=== PATIENT | female | born 1965 | race Caucasian/White ===

== ENCOUNTER → 2016-11-19 | Outpatient (CLI) | payer BC ==
--- NOTE | 2016-11-25 07:57 | WOMENS IMAGING REPORT ---
EXAM DESCRIPTION: BILAT SCREENING MAMMO W/CAD COMPLETED DATE/TIME: 11/19/2016 11:21 am REASON FOR STUDY: Z12.31, ROUTINE SCREENING MAMMO Z12.31 ENCNTR SCREEN MAMMOGRAM FOR MALIGNANT NEOP LASM OF YVROSE COMPARISON: 03/30/2015 TECHNIQUE: Standard craniocaudal and mediolateral oblique views of each breast recorded using Adhesive.coa l acquisition. LIMITATIONS: None. FINDINGS: Findings present which are benign by mammographic criteria. No suspicious masses, calcifi cations or architectural distortion. Read with the assistance of CAD. .[facility] - R2 Cenova Version 1.3 .[facility] Imaging - R2 Cenova Version 1.3 .[facility] Imaging - R2 Cenova Version 2.4 .[facility] - R2 Cenova Version 2.4 .[facility] - R2 Air Drier Version 9.2 Benign mammographic findings may include one or more of the following: Smooth masses, popcorn/rim/co arse calcifications, asymmetries, post-procedure changes, and lesions with long-standing stability. BREAST DENSITY: b. There are scattered areas of fibroglandular density. BIRAD: 2 BENIGN FINDING(S) RECOMMENDATION: ROUTINE SCREENING COMMENT: PATIENT NOTIFIED BY LETTER. The [employer] recommends an annual screening mammogram for women aged 40 years or over. Each patient will receive a reminder prior to the anniversary date of her mammogram. The [employer] (ACR) has developed recommendations for screening MRI of the breast s in certain patient populations, to be used in conjunction with mammography. Breast MRI surveillanc e may be appropriate for women with more than 20% lifetime risk of developing breast cancer as deter mined by genetic testing, significant family history of the disease, or history of mantle radiation f or Hodgkins Disease. ACR Practice Guidelines 2008. TECHNICAL DOCUMENTATION: FINDING NUMBER: (1) ASSESSMENT: (1) JOB ID: [id number] [employer]- All Rights Reserved
== END ==
LOC: WI 09:48
PROVIDERS: ATTEND Family Medicine
DX: Z12.31 Encounter for screening mammogram for malignant neoplasm of breast (principal)
CPT/HCPCS: 77067; G0202

== ENCOUNTER 2017-01-21 23:05 | Emergency (ER) | payer BC ==
[2017-01-22] MEDS ORDERED: OXYCODONE-ACETAMINOPHEN 5-325 MG TABLET PO ONE (00:21)
[2017-01-22] MEDS ORDERED: ONDANSETRON 4 MG TAB.RAPDIS PO ONE (00:21)
--- NOTE | 2017-01-22 00:24 | ER Document Report ---
ED Medical Screen (RME) - General Stated Complaint: ABDOMINAL PAIN Notes: 51 year old female that comes to the ED for chief complaint of epigastric abdominal pain, worsening over the past 4 days and now became constant. She states that if she tries to eat she vomits. No fever. Normal bowel movements. Past medical history of hysterectomy, tubal ligation, exploratory abdominal surgery. TRAVEL OUTSIDE OF THE [place] IN LAST 30 DAYS: No - Related Data Allergies/Adverse Reactions: oxaprozin [From Daypro] Allergy (Verified 01/22/17 00:19) Penicillins Allergy (Verified 01/22/17 00:19) Past Medical History Psychiatric Medical History: Reports: Hx Anxiety, Hx Depression - anxiety Past Surgical History: Reports: Hx Abdominal Surgery - exploratory, Hx Hysterectomy Physical Exam - Vital signs Vitals: Temp Pulse Resp BP Pulse Ox 97.6 F 63 16 177/85 H 100 01/21/17 23:24 01/21/17 23:24 01/21/17 23:24 01/21/17 23:24 01/21/17 23:24 - Abdominal Tenderness: Tender - significantly tender in epigastric abdomen, otherwise soft and benign Course - Vital Signs Vital signs: Temp Pulse Resp BP Pulse Ox 97.6 F 63 16 177/85 H 100 01/21/17 23:24 01/21/17 23:24 01/21/17 23:24 01/21/17 23:24 01/21/17 23:24
[2017-01-22 00:53] LABS: ABSOLUTE BASOPHILS # (AUTO) 0.1 10^3/uL (0.0-0.2); ABSOLUTE EOSINOPHILS # (AUTO) 0.3 10^3/uL (0.0-0.6); ABSOLUTE LYMPHOCYTES (AUTO) 2.8 10^3/uL (0.5-4.7); ABSOLUTE MONOCYTES (AUTO) 0.5 10^3/uL (0.1-1.4); ABSOLUTE NEUT (AUTO) 4.1 10^3/uL (1.7-8.2); EOSINOPHILS % (AUTO) 3.7 % (0-6); HEMATOCRIT 39.5 % (36.0-47.0); HEMOGLOBIN 13.3 g/dL (12.0-15.5); HGB HCT DIFFERENCE 0.4; LYMPHOCYTES % (AUTO) 36.4 % (13-45); MEAN CORPUSCULAR HEMOGLOBIN 29.7 pg (27.0-33.4); MEAN CORPUSCULAR HGB CONC 33.6 g/dL (32.0-36.0); MEAN CORPUSCULAR VOLUME 89 fl (80-97); MONOCYTES % (AUTO) 6.8 % (3-13); RED BLOOD COUNT 4.46 10^6/uL (3.72-5.28); RED CELL DISTRIBUTION WIDTH 13.4 % (11.5-14.0); SEGMENTED NEUTROPHILS % (AUTO) 52.1 % (42-78); WHITE BLOOD COUNT 7.8 10^3/uL (4.0-10.5)
[2017-01-22 01:17] LABS: ALANINE AMINOTRANSFERASE 38 U/L (9-52); ALKALINE PHOSPHATASE 69 U/L (38-126); ANION GAP 12 (5-19); ASPARTATE AMINO TRANSFERASE 28 U/L (14-36); BILIRUBIN,DIRECT 0.2 mg/dL (0.0-0.4); BLOOD UREA NITROGEN 15 mg/dL (7-20); CALCIUM 10.4 mg/dL (8.4-10.2); CARBON DIOXIDE 29 mmol/L (22-30); CHLORIDE 102 mmol/L (98-107); CREATININE RESULT 0.62 mg/dL (0.52-1.25); GLUCOSE 112 mg/dL (75-110); LIPASE 69.9 U/L (23-300); POTASSIUM 4.2 mmol/L (3.6-5.0); SODIUM 143.4 mmol/L (137-145); TOTAL PROTEIN 7.8 g/dL (6.3-8.2)
[2017-01-22] MEDS ORDERED: LIDOCAINE 2% VISCOUS SOLN 20 ML UDCUP PO ONE ×2 (06:37→07:48)
[2017-01-22] MEDS ORDERED: MAG HYDROX/AL HYDROX/SIMETH SUSP 30 ML UDCUP PO ONE ×2 (06:37→07:48)
--- NOTE | 2017-01-22 06:51 | ER Document Report ---
ED GI/ - General Mode of Arrival: Ambulatory Information source: Patient TRAVEL OUTSIDE OF THE U.S[place] IN LAST 30 DAYS: No - HPI Patient complains to provider of: Abdominal pain Onset: Other - 4-5 days ago Timing/Duration: Sudden, Intermittent, Worse Severity at maximum: Severe Severity in ED: Severe Location: Epigastric Associated symptoms: Nausea, Vomiting Exacerbated by: Food <JOSUE FWOLER - Last Filed: 01/22/17 06:38> <KHANH CHAMPION - Last Filed: 01/22/17 11:41> - General Chief Complaint: Epigastric Pain Stated Complaint: ABDOMINAL PAIN Notes: Patient is a 51-year-old female presenting to the emergency department with complaints of 4-5 days of abdominal pain with vomiting after eating. Patient states that early yesterday afternoon the pain became constant and unrelenting, so she decided to come into the emergency department. Patient states that liquids cause her abdominal pain, but no vomiting, and the pain isn't as bad as when she eats food. Patient states the pain is in the epigastric region and very severe (JOSUE FOWLER) - Related Data Allergies/Adverse Reactions: oxaprozin [From Daypro] Allergy (Verified 01/22/17 00:19) Penicillins Allergy (Verified 01/22/17 00:19) Past Medical History - General Information source: Patient, [facility] Records - Social History Smoking Status: Never Smoker Chew tobacco use (# tins/day): No Frequency of alcohol use: Occasional Drug Abuse: None Family History: Reviewed & Not Pertinent Patient has suicidal ideation: No Patient has homicidal ideation: No Renal/ Medical History: Denies: Hx Peritoneal Dialysis Psychiatric Medical History: Reports: Hx Anxiety, Hx Depression Past Surgical History: Reports: Hx Abdominal Surgery - exploratory, Hx Hysterectomy <JOSUE FOWLER - Last Filed: 01/22/17 06:38> Review of Systems - Review of Systems Constitutional: No symptoms reported EENT: No symptoms reported Cardiovascular: No symptoms reported Respiratory: No symptoms reported Gastrointestinal: See HPI, Abdominal pain - Epigastric, Nausea, Vomiting Genitourinary: No symptoms reported Female Genitourinary: No symptoms reported Musculoskeletal: No symptoms reported Skin: No symptoms reported Hematologic/Lymphatic: No symptoms reported Neurological/Psychological: No symptoms reported -: Yes All other systems reviewed and negative <JOSUE FOWLER - Last Filed: 01/22/17 06:38> Physical Exam - General General appearance: Alert, Other - Appears uncomfortable - HEENT Head: Normocephalic, Atraumatic Eyes: Normal Pupils: PERRL - Respiratory Respiratory status: No respiratory distress Chest status: Nontender Breath sounds: Normal Chest palpation: Normal - Cardiovascular Rhythm: Regular Heart sounds: Normal auscultation Murmur: No - Abdominal Distension: No distension Bowel sounds: Normal Tenderness: Tender - Epigastric tenderness to palpation. - Back Back: Normal, Nontender - Extremities General upper extremity: Normal inspection, Nontender General lower extremity: Normal inspection, Nontender - Neurological Neuro grossly intact: Yes Cognition: Normal [place] Coma Scale Eye Opening: Spontaneous Amber Coma Scale Verbal: Oriented Amber Coma Scale Motor: Obeys Commands [place] Coma Scale Total: 15 Speech: Normal - Psychological Associated symptoms: Normal affect, Normal mood - Skin Skin Temperature: Warm Skin Moisture: Dry Skin Color: Normal <JOSUE FOWLER - Last Filed: 01/22/17 06:38> Course - Laboratory Result Diagrams: 01/22/17 00:44 01/22/17 00:44 <JOSUE FOWLER - Last Filed: 01/22/17 06:38> - Laboratory Result Diagrams: 01/22/17 00:44 01/22/17 00:44 - Diagnostic Test Radiology reviewed: Reports reviewed - Upper GI series shows a gastric ulcer <KHANH CHAMPION - Last Filed: 01/22/17 11:41> - Vital Signs Vital signs: Temp Pulse Resp BP Pulse Ox 97.5 F 61 16 135/77 H 95 01/22/17 08:12 01/22/17 08:12 01/22/17 08:12 01/22/17 08:12 01/22/17 08:12 - Laboratory Laboratory results interpreted by me: 01/22/17 00:44 Glucose 112 H Calcium 10.4 H Discharge <JOSUE FOWLER - Last Filed: 01/22/17 06:38> <KHANH CHAMPION - Last Filed: 01/22/17 11:41> - Discharge Clinical Impression: Peptic ulcer disease, Epigastric abdominal pain Nausea and vomiting Qualifiers: Vomiting type: unspecified Vomiting Intractability: non-intractable Qualified Code(s): R11.2 - Nausea with vomiting, unspecified Condition: Stable Disposition: HOME, SELF-CARE Additional Instructions: Ulcer: You have an ulcer. An ulcer is an erosion of the lining of the stomach or duodenum. It's a hole "burned out" by acid. Typically, this causes a burning or gnawing upper abdominal pain. Bleeding may occur from the ulcer. Ulcers may be started by alcohol or medicines, or by infection of the stomach. Antacids may be taken for pain, and may allow the ulcer to heal when taken after meals and at bedtime. More commonly, acid- suppressing drugs or ulcer- protective drugs (like Carafate) are prescribed. Avoid aspirin, ibuprofen, caffeine, tobacco, and alcohol. Repeat tests to confirm healing of the ulcer may be necessary. Some ulcers seem to be brought on by infection. If the doctor feels this is likely, you may be treated with bismuth for several weeks. If the abdominal pain worsens, or there's evidence of bleeding (such as black, tarry stool, bloody or black vomit, or lightheadedness), you should call the doctor or return immediately. TAKE THE MEDICATIONS PRESCRIBED. DRINK SMALL SIPS OF COOL CLEAR LIQUIDS. TAKE ANTI-ACIDS BETWEEN MEALS AND AT BEDTIME. Dr. Ochoa will call you to set up an appointment for Thursday. Prescriptions: Hydrocodone/Acetaminophen [Hydrocodon-Acetaminophen 5-325] 1 each PO Q4 PRN #15 tablet PRN Reason: For Pain Omeprazole 20 mg PO BID #20 tablet.dr Forms: Return to Work Referrals: LAURENCE OCHOA MD [ACTIVE STAFF] - Follow up in 3-5 days (His office will call you for a Thursday appointment.) Scribe Attestation: 01/22/17 11:41 I personally performed the services described in the documentation, reviewed and edited the documentation which was dictated to the scribe in my presence, and it accurately records my words and actions. (KHANH CHAMPION) Scribe Documentation - Scribe Written by Ruthie:: Josue Fowler 01/22/2017 0639 acting as scribe for :: Kristine <JOSUE FOWLER - Last Filed: 01/22/17 06:38>
[2017-01-22] MEDS ORDERED: ONDANSETRON HCL INJ/PF 4 MG/2 ML SDV IV ONE (06:55)
[2017-01-22] MEDS ORDERED: NORMAL SALINE 1000 ML 1,000 ML IV ONE (06:55)
[2017-01-22] MEDS ORDERED: MORPHINE SULFATE 10 MG/ML INJ IV ONE (06:55)
[2017-01-22] MEDS ORDERED: FAMOTIDINE INJ/PF 20 MG/2 ML SDV IV ONE (06:55)
[2017-01-22] MEDS ORDERED: PANTOPRAZOLE SODIUM 40 MG VIAL IV ONE (10:35)
[2017-01-22 11:55] VITALS: BP 123/72
== END 2017-01-22 11:55 | disposition home or self-care (01) ==
LOC: ER 23:05
DX: K25.9 Gastric ulcer, unspecified as acute or chronic, without hemorrhage or perforation (principal); R10.13 Epigastric pain; R11.2 Nausea with vomiting, unspecified; Z88.8 Allergy status to other drugs, medicaments and biological substances; Z88.0 Allergy status to penicillin; Z90.710 Acquired absence of both cervix and uterus
CPT/HCPCS: 99284; 96361; 96374; 96375; 36415; 83690; 85025; 80053; 74247; 76705; S0119; J3490; J2270; S0164; J2405; J7030; S0028

== ENCOUNTER 2017-07-25 11:59 | Emergency (ER) | payer BC ==
[2017-07-25] MEDS ORDERED: OXYCODONE-ACETAMINOPHEN 5-325 MG TABLET PO ONE (12:18)
--- NOTE | 2017-07-25 12:19 | ER Document Report ---
ED Medical Screen (RME) - General Chief Complaint: Abdominal Pain Stated Complaint: ABDOMINAL PAIN Time Seen by Provider: 07/25/17 12:14 Mode of Arrival: Ambulatory Information source: Patient Notes: 51-year-old female presents with complaints of left lower quadrant abdominal pain approximately 2-3 week duration. Patient denies any fever chills nausea vomiting diarrhea. Patient denies any urinary complaints I have greeted and performed a rapid initial assessment of this patient. A comprehensive ED assessment and evaluation of the patient, analysis of test results and completion of the medical decision making process will be conducted by additional ED providers. PHYSICAL EXAMINATION: GENERAL: Well-appearing, well-nourished and in no acute distress. HEAD: Atraumatic, normocephalic. EYES: Pupils equal round extraocular movements intact, conjunctiva are normal. ENT: Nares patent NECK: Normal range of motion LUNGS: No respiratory distress Abdomen: tender in the left lower quadrant Musculoskeletal: Normal range of motion NEUROLOGICAL: Normal speech, normal gait. PSYCH: Normal mood, normal affect. SKIN: Warm, Dry, normal turgor, no rashes or lesions noted. TRAVEL OUTSIDE OF THE U.S. IN LAST 30 DAYS: No - Related Data Allergies/Adverse Reactions: oxaprozin [From Daypro] Allergy (Verified 07/25/17 12:07) Penicillins Allergy (Verified 07/25/17 12:07) Past Medical History - Social History Chew tobacco use (# tins/day): No Frequency of alcohol use: Occasional Drug Abuse: None Renal/ Medical History: Denies: Hx Peritoneal Dialysis GI Medical History: Reports: Hx Ulcer - 02/16 Psychiatric Medical History: Reports: Hx Anxiety, Hx Depression Past Surgical History: Reports: Hx Abdominal Surgery - exploratory, Hx Hysterectomy Physical Exam - Vital signs Vitals: Temp Pulse Resp BP Pulse Ox 98.4 F 88 18 141/85 H 100 07/25/17 12:07 07/25/17 12:07 07/25/17 12:07 07/25/17 12:07 07/25/17 12:07 Course - Vital Signs Vital signs: Temp Pulse Resp BP Pulse Ox 98.4 F 88 18 141/85 H 100 07/25/17 12:07 07/25/17 12:07 07/25/17 12:07 07/25/17 12:07 07/25/17 12:07
--- NOTE | 2017-07-25 12:38 | ER Document Report ---
ED GI/ - General Chief Complaint: Abdominal Pain Stated Complaint: ABDOMINAL PAIN Time Seen by Provider: 07/25/17 12:14 Mode of Arrival: Ambulatory Information source: Patient Notes: 51-year-old female complaining of sharp constant left pelvic pain since yesterday. It started dull and intermittent several weeks ago. History of diverticulitis but she thinks that pain was on the right. Bowel movements are normal. No history of kidney stones or ovarian cysts. Has had a right nephrectomy and hysterectomy, still has her left ovary. No urinary symptoms or hematuria. No n/v/d. No fever. TRAVEL OUTSIDE OF THE [place] IN LAST 30 DAYS: No - Related Data Allergies/Adverse Reactions: oxaprozin [From Daypro] Allergy (Verified 07/25/17 12:07) Penicillins Allergy (Verified 07/25/17 12:07) Past Medical History - General Information source: Patient - Social History Smoking Status: Never Smoker Chew tobacco use (# tins/day): No Frequency of alcohol use: Occasional Drug Abuse: None Family History: Reviewed & Not Pertinent Renal/ Medical History: Denies: Hx Peritoneal Dialysis GI Medical History: Reports: Hx Ulcer - 02/16 Psychiatric Medical History: Reports: Hx Anxiety, Hx Depression Past Surgical History: Reports: Hx Abdominal Surgery - exploratory, Hx Hysterectomy Review of Systems - Review of Systems Constitutional: No symptoms reported EENT: No symptoms reported Cardiovascular: No symptoms reported Respiratory: No symptoms reported Gastrointestinal: See HPI Genitourinary: No symptoms reported Female Genitourinary: No symptoms reported Musculoskeletal: No symptoms reported Skin: No symptoms reported Hematologic/Lymphatic: No symptoms reported Neurological/Psychological: No symptoms reported Physical Exam - Vital signs Vitals: Temp Pulse Resp BP Pulse Ox 98.4 F 88 18 141/85 H 100 07/25/17 12:07 07/25/17 12:07 07/25/17 12:07 07/25/17 12:07 07/25/17 12:07 Interpretation: Normal - General General appearance: Appears well, Alert - HEENT Head: Normocephalic, Atraumatic Eyes: Normal Pupils: PERRL - Respiratory Respiratory status: No respiratory distress Chest status: Nontender Breath sounds: Normal Chest palpation: Normal - Cardiovascular Rhythm: Regular Heart sounds: Normal auscultation Murmur: No - Abdominal Inspection: Normal Distension: No distension Bowel sounds: Normal Tenderness: Tender - left pelvic. No: Guarding, Rebound Organomegaly: No organomegaly. No: Hepatomegaly, Splenomegaly - Back Back: Normal, Nontender. No: CVA tenderness - Extremities General upper extremity: Normal inspection, Nontender, Normal color, Normal ROM , Normal temperature General lower extremity: Normal inspection, Nontender, Normal color, Normal ROM , Normal temperature, Normal weight bearing. No: Nicolás's sign - Neurological Neuro grossly intact: Yes Cognition: Normal Orientation: AAOx4 Amber Coma Scale Eye Opening: Spontaneous Amber Coma Scale Verbal: Oriented [place] Coma Scale Motor: Obeys Commands [place] Coma Scale Total: 15 Speech: Normal Motor strength normal: LUE, RUE, LLE, RLE Sensory: Normal - Psychological Associated symptoms: Normal affect, Normal mood - Skin Skin Temperature: Warm Skin Moisture: Dry Skin Color: Normal Skin irregularity: negative: Rash Course - Re-evaluation Re-evalutation: 07/25/17 14:16 Labs are normal, transvaginal ultrasound shows normal non-torsed ovary. Discussion with Dr. Virginia littlejohn who recommends treating her for possible diverticulitis and she has had it in the past. She is very minimal tenderness at this time with a dull ache relieved with the morphine and 1 Percocet. Patient does not want a CAT scan today and wants to try the antibiotics first. - Vital Signs Vital signs: Temp Pulse Resp BP Pulse Ox 97.6 F 72 20 123/74 97 07/25/17 14:26 07/25/17 14:26 07/25/17 14:26 07/25/17 14:26 07/25/17 14:26 - Laboratory Result Diagrams: 07/25/17 12:30 07/25/17 12:30 Laboratory results interpreted by me: 07/25/17 12:30 Salicylates < 1.0 L Discharge - Discharge Clinical Impression: left lower quadrant abdominal pain Condition: Good Disposition: HOME, SELF-CARE Instructions: Abdominal Pain ([facility]), Ciprofloxacin ([facility]), Metronidazole ([facility]) Additional Instructions: to er if worse pain, fever, vomitin I have consulted with the supervisory physician per [facility] Guidelines.g or any new worse symptoms plenty of fluids no alcohol with the metronidazole see your doctor for follow up next week Please complete the patient satisfaction survey if you get one, and return it.. If you do not receive a survey, then you can go to the [facility] website, [email or web address] and place your comments about your very good care. Thank you very much. It was a pleasure being your medical provider today. Prescriptions: Oxycodone HCl/Acetaminophen [Percocet 10-325 Mg Tablet] 1 each PO Q4HP PRN #15 tablet PRN Reason: Ciprofloxacin HCl [Cipro 750 mg Tablet] 750 mg PO BID #20 tablet Metronidazole 500 mg PO Q6H #40 tablet
[2017-07-25 12:44] LABS: ABSOLUTE EOSINOPHILS # (AUTO) 0.6 10^3/uL (0.0-0.6); ABSOLUTE LYMPHOCYTES (AUTO) 1.8 10^3/uL (0.5-4.7); ABSOLUTE MONOCYTES (AUTO) 0.6 10^3/uL (0.1-1.4); ABSOLUTE NEUT (AUTO) 7.1 10^3/uL (1.7-8.2); BASOPHILS % (AUTO) 0.4 % (0-2); EOSINOPHILS % (AUTO) 5.8 % (0-6); HEMATOCRIT 38.7 % (36.0-47.0); HEMOGLOBIN 13.3 g/dL (12.0-15.5); HGB HCT DIFFERENCE 1.2; MEAN CORPUSCULAR HEMOGLOBIN 30.4 pg (27.0-33.4); MEAN CORPUSCULAR HGB CONC 34.5 g/dL (32.0-36.0); MEAN CORPUSCULAR VOLUME 88 fl (80-97); MONOCYTES % (AUTO) 5.8 % (3-13); RED BLOOD COUNT 4.39 10^6/uL (3.72-5.28); RED CELL DISTRIBUTION WIDTH 13.4 % (11.5-14.0); WHITE BLOOD COUNT 10.2 10^3/uL (4.0-10.5)
[2017-07-25] MEDS ORDERED: ONDANSETRON 4 MG TAB.RAPDIS PO ONE (12:46)
[2017-07-25] MEDS ORDERED: MORPHINE SULFATE 10 MG/ML INJ IV ONE (12:47)
[2017-07-25 13:01] LABS: ALANINE AMINOTRANSFERASE 32 U/L (9-52); ALBUMIN 4.6 g/dL (3.5-5.0); ALKALINE PHOSPHATASE 77 U/L (38-126); ANION GAP 10 (5-19); ASPARTATE AMINO TRANSFERASE 20 U/L (14-36); BILIRUBIN,DIRECT 0.3 mg/dL (0.0-0.4); BILIRUBIN,TOTAL 0.9 mg/dL (0.2-1.3); BLOOD UREA NITROGEN 11 mg/dL (7-20); CARBON DIOXIDE 28 mmol/L (22-30); CHLORIDE 103 mmol/L (98-107); GLUCOSE 96 mg/dL (75-110); POTASSIUM 4.1 mmol/L (3.6-5.0); SODIUM 140.9 mmol/L (137-145); TOTAL PROTEIN 7.3 g/dL (6.3-8.2)
[2017-07-25 13:05] LABS: APPEARANCE,URINE CLEAR; BILIRUBIN,URINE NEGATIVE (NEGATIVE); GLUCOSE, URINE NEGATIVE (NEGATIVE); KETONES,URINE NEGATIVE (NEGATIVE); LEUKOCYTE ESTERASE,URINE NEGATIVE (NEGATIVE); NITRITE,URINE NEGATIVE (NEGATIVE); PROTEIN,URINE NEGATIVE (NEGATIVE); URINE SPECIFIC GRAVITY 1.008; UROBILINOGEN,URINE NEGATIVE mg/dL (<2.0)
--- NOTE | 2017-07-25 13:43 | RADIOLOGY REPORT (SQ) ---
EXAM DESCRIPTION: U/S NON OB PEL TV W/DOPPLER COMPLETED DATE/TIME: 07/25/2017 1:20 pm REASON FOR STUDY: LLQ pain COMPARISON: None. TECHNIQUE: Dynamic and static grayscale images acquired of the pelvis via transvaginal approach and recorded on PACS. Additional selected color Doppler and spectral images recorded. LIMITATIONS: None. FINDINGS: Patient is post hysterectomy. Right ovary is not identified. Left ovary is 2.2 x 2 x 1.7 cm in size with normal color flow and Doppler waveforms suggesting agains t torsion IMPRESSION: Post hysterectomy. Right ovary not identified. Normal size left ovary without ultrasound evidence of torsion TECHNICAL DOCUMENTATION: JOB ID: [id number] [employer]- All Rights Reserved
[2017-07-25] MEDS ORDERED: METRONIDAZOLE 500 MG TABLET PO ONE (14:14)
[2017-07-25] MEDS ORDERED: CIPROFLOXACIN HCL 500 MG TABLET PO ONE (14:14)
[2017-07-25 14:29] VITALS: BP 123/74
== END 2017-07-25 14:29 | disposition home or self-care (01) ==
LOC: ER 11:59
DX: R10.32 Left lower quadrant pain (principal); R10.2 Pelvic and perineal pain; Z90.710 Acquired absence of both cervix and uterus; Z90.721 Acquired absence of ovaries, unilateral
CPT/HCPCS: 99284; 96374; 36415; 87086; 83690; 80307; 85025; 87088; 80053; 81001; 76830; 93976; S0119; J2270

== ENCOUNTER → 2018-01-13 | Outpatient (CLI) | payer BC ==
--- NOTE | 2018-01-13 09:41 | WOMENS IMAGING REPORT ---
EXAM DESCRIPTION: BILAT SCREENING MAMMO W/CAD COMPLETED DATE/TIME: 01/13/2018 9:08 am REASON FOR STUDY: ROUTINE SCREENING; Z12.31 Z12.31 ENCNTR SCREEN MAMMOGRAM FOR MALIGNANT NEOPLASM O F YVROSE COMPARISON: November 2016 TECHNIQUE: Standard craniocaudal and mediolateral oblique views of each breast recorded using digita l acquisition. LIMITATIONS: None. FINDINGS: No masses, calcifications or architectural distortion. No areas of suspicion. Read with the assistance of CAD. .[facility] - R2 Cenova Version 1.3 .[facility] - R2 Cenova Version 1.3 .[facility] - R2 Cenova Version 2.4 .[facility] - R2 Cenova Version 2.4 .[facility] - R2 Mission Planner Version 9.2 IMPRESSION: NORMAL MAMMOGRAM. BIRADS 1. BREAST DENSITY: b. There are scattered areas of fibroglandular density. BIRAD: 1 NEGATIVE RECOMMENDATION: ROUTINE SCREENING COMMENT: The patient has been notified of the results by letter per SA requirements. Additional no tification policies are in place for contacting patient with suspicious or incomplete findings. Quality ID #[id number]: The [employer] recommends an annual screening mammogram for women aged 40 years or over. This facility utilizes a reminder system to ensure that all patients receive reminder letters, and/or direct phone calls for appointments. This includes reminders for routine scr eening mammograms, diagnostic mammograms, or other Breast Imaging Interventions when appropriate. Th is patient will be placed in the appropriate reminder system. The [employer] (ACR) has developed recommendations for screening MRI of the breast s in certain patient populations, to be used in conjunction with mammography. Breast MRI surveillanc e may be appropriate for women with more than 20% lifetime risk of developing breast cancer as deter mined by genetic testing, significant family history of the disease, or history of mantle radiation f or Hodgkins Disease. ACR Practice Guidelines 2008. TECHNICAL DOCUMENTATION: FINDING NUMBER: (1) ASSESSMENT: (1) JOB ID: [id number] [employer]- All Rights Reserved Reading location - IP/workstation name: [facility]
== END ==
LOC: WI 08:42
PROVIDERS: ATTEND Family Medicine
DX: Z12.31 Encounter for screening mammogram for malignant neoplasm of breast (principal)
CPT/HCPCS: 77067

== ENCOUNTER → 2019-01-18 | Outpatient (CLI) | payer BC ==
--- NOTE | 2019-01-18 14:24 | WOMENS IMAGING REPORT ---
EXAM DESCRIPTION: 3D SCREENING MAMMO BILAT COMPLETED DATE/TIME: 01/18/2019 11:11 am REASON FOR STUDY: Z12.31 ROUTINE 3D BILATERAL SCREENING Z12.31 ENCNTR SCREEN MAMMOGRAM FOR MALIGNAN T NEOPLASM OF YVROSE COMPARISON: 2016, 2017 TECHNIQUE: Standard craniocaudal and mediolateral oblique views of each breast recorded using digita l acquisition and breast tomosynthesis. LIMITATIONS: None. FINDINGS: No masses, calcifications or architectural distortion. No areas of suspicion. Read with the assistance of CAD. .[facility] - R2 Cenova Version 1.3 .[facility] Imaging - R2 Cenova Version 2.1 .[facility] - R2 Cenova Version 2.4 .[facility] - R2 Cenova Version 2.4 .[facility] - R2 Pocketed Spring Machine Operator Version 9.2 IMPRESSION: NORMAL MAMMOGRAM. BIRADS 1. BREAST DENSITY: b. There are scattered areas of fibroglandular density. BIRAD: 1 NEGATIVE RECOMMENDATION: ROUTINE SCREENING COMMENT: The patient has been notified of the results by letter per SA requirements. Additional no tification policies are in place for contacting patient with suspicious or incomplete findings. Quality ID #[id number]: The [employer] recommends an annual screening mammogram for women aged 40 years or over. This facility utilizes a reminder system to ensure that all patients receive reminder letters, and/or direct phone calls for appointments. This includes reminders for routine scr eening mammograms, diagnostic mammograms, or other Breast Imaging Interventions when appropriate. Th is patient will be placed in the appropriate reminder system. The [employer] (ACR) has developed recommendations for screening MRI of the breast s in certain patient populations, to be used in conjunction with mammography. Breast MRI surveillanc e may be appropriate for women with more than 20% lifetime risk of developing breast cancer as deter mined by genetic testing, significant family history of the disease, or history of mantle radiation f or Hodgkins Disease. ACR Practice Guidelines 2008. DBT Technology DBT is a type of tomographic mammography. With conventional mammography, overlapping breast tissue ma y make lesions difficult to detect, even with good compression. DBT uses an x-ray tube that rotates a round the breast, taking images at different angles. These images are then combined to create thin sl ices of the breast that the radiologist can view as a 3D reconstruction. The [employer] unit can perform full-field digital mammograms (2D imaging); or DBT (3D imaging); or both, in a combination mode that quickly performs both the mammogram and the tomosynthesis scan while the breast is still compressed. PQRS 6045F: Fluoroscopic imaging is not utilized for breast tomosynthesis. TECHNICAL DOCUMENTATION: FINDING NUMBER: (1) ASSESSMENT: (1) JOB ID: [id number] [employer]- All Rights Reserved Reading location - IP/workstation name: [email or web address]
== END ==
LOC: WI 10:54
PROVIDERS: ATTEND Family Medicine
DX: Z12.31 Encounter for screening mammogram for malignant neoplasm of breast (principal)
CPT/HCPCS: 77063; 77067